=== PATIENT | female | born 1975 | race Asian ===

== ENCOUNTER 2023-06-26 06:07 | Emergency (ER) | payer OTHER ==
[2023-06-26 06:34] VITALS: BP 123/78; O2SAT 100
--- NOTE | 2023-06-26 07:47 | ED Physician Documentation ---
PD HPI URI - Stated complaint Stated Complaint: FEVER/THROAT EAR PX - Chief complaint Chief Complaint: Fever - History obtained from History obtained from: Patient - History of Present Illness Timing - onset: How many days ago (several) Timing duration: Days (several) Timing details: Gradual onset, Still present Associated symptoms: Chills, Ear pain (left ear since yesterday.), Sore throat, Swollen nodes Contributing factors: Sick contact (kids have been sick.). No: Immunocompromised Similar symptoms before: Has not had sx before Review of Systems Constitutional: reports: Fever, Chills, Myalgias, Fatigue Ears: reports: Ear pain (left) Throat: reports: Sore throat GI: denies: Vomiting, Diarrhea Skin: denies: Rash Neurologic: denies: Altered mental status, Headache PD PAST MEDICAL HISTORY - Past Medical History Past Medical History: No - Present Medications Home Medications: Ambulatory Orders Medication Instructions Recorded Confirmed Amoxicillin 500 mg PO TID #18 cap 06/26/23 Cetirizine [ZyrTEC] 10 mg PO BID #20 tablet 06/26/23 - Allergies Allergies/Adverse Reactions: Allergies Allergy/AdvReac Type Severity Reaction Status Date / Time ibuprofen Allergy Unknown Verified 06/26/23 06:30 - Social History Does the pt smoke?: No Smoking Status: Never smoker Does the pt have substance abuse?: No PD ED PE NORMAL - Vitals Vital signs reviewed: Yes - General General: Alert and oriented X 3, No acute distress, Well developed/nourished - HEENT HEENT: Pharynx benign. No: Ears normal (right is okya. left with redness and distorted landmarks of the TM. Canal is okay. ) - Neck Neck: Supple, no meningeal sign, No adenopathy - Cardiac Cardiac: RRR, No murmur - Respiratory Respiratory: Clear bilaterally - Abdomen Abdomen: Soft, Non tender Results - Vitals Vitals: Oxygen O2 Source Room air - Labs Labs: Laboratory Tests 06/26/23 06:45 Nasal Adenovirus (PCR) NOT DETECTED Nasal B. parapertussis DNA (PCR) NOT DETECTED Nasal Coronavir 229E PCR NOT DETECTED Nasal Coronavir HKU1 PCR NOT DETECTED Nasal Coronavir NL63 PCR NOT DETECTED Nasal Coronavir OC43 PCR DETECTED A Nasal Enterovir/Rhinovir PCR NOT DETECTED Nasal Influenza B PCR NOT DETECTED Nasal Influenza A PCR NOT DETECTED Nasal Parainfluen 1 PCR NOT DETECTED Nasal Parainfluen 2 PCR NOT DETECTED Nasal Parainfluen 3 PCR NOT DETECTED Nasal Parainfluen 4 PCR NOT DETECTED Nasal RSV (PCR) NOT DETECTED Nasal B.pertussis DNA PCR NOT DETECTED Nasal C.pneumoniae (PCR) NOT DETECTED Jared Human Metapneumo PCR NOT DETECTED Nasal M.pneumoniae (PCR) NOT DETECTED Nasal SARS-CoV-2 (PCR) NOT DETECTED PD Medical Decision Making - ED course Complexity details: considered differential (URI symptoms with positive viral PCRbut has clinical findings and symptoms for left otitis media as well. ), d/w patient Departure - Departure Disposition: 01 Home, Self Care Clinical Impression: Viral illness Otitis media Qualifiers: Otitis media type: suppurative Chronicity: acute Laterality: left Recurrence: non-recurrent Spontaneous tympanic membrane rupture: without spontaneous rupture Qualified Code(s): H66.002 - Acute suppurative otitis media without spontaneous rupture of ear drum, left ear Condition: Stable Record reviewed to determine appropriate education?: Yes Instructions: ED Otitis Media Acute Adult, ED Viral Syndrome Prescriptions: Amoxicillin 500 mg PO TID #18 cap Cetirizine [ZyrTEC] 10 mg PO BID #20 tablet Comments: Your viral panel test is positive for the viral upper respiratory infection germ coronavirus. This is a non-COVID type coronavirus and typically acts more like a head cold/flu for several days to week. You do have significant redness in the left eardrum appearing a separate ear infection along with that. Stay well-hydrated. Continue with Tylenol reported 6 hours if needed. You could add an ibuprofen or naproxen. The ear infection developed because of trapped fluid and germs through the middle ear. I would add cetirizine antihistamine twice daily for the next week and amoxicillin 3 times daily for a week. We did send home a days worth of antibiotic and also some pain medicine to take for extra pain. I sent the other prescriptions to the [facility] pharmacy for tomorrow. Forms: PCP List, Activity restrictions Discharge Date/Time: 06/26/23 08:43
[2023-06-26 07:59] LABS: B. PARAPERTUSSIS- RESP PCR PAN NOT DETECTED; B. PERTUSSIS- RESP PCR PANEL NOT DETECTED; C. PNEUMONIAE- RESP PCR PANEL NOT DETECTED; CORONAVIRUS 229E-RESP PCR NOT DETECTED; CORONAVIRUS HKU1-RESP PCR NOT DETECTED; CORONAVIRUS NL63-RESP PCR NOT DETECTED; CORONAVIRUS OC43-RESP PCR DETECTED; HUMAN METAPNEUMOVIRUS NOT DETECTED; INFLUENZA A- RESP PCR PANEL NOT DETECTED; INFLUENZA B - RESP PCR PANEL NOT DETECTED; M. PNEUMONIAE- RESP PCR PANEL NOT DETECTED; PARAINFLUENZA VIRUS 1 NOT DETECTED; PARAINFLUENZA VIRUS 2 NOT DETECTED; PARAINFLUENZA VIRUS 3 NOT DETECTED; PARAINFLUENZA VIRUS 4 NOT DETECTED; RHINOVIRUS/ENTEROVIRUS NOT DETECTED; RSV- RESP PCR PANEL NOT DETECTED; SARS-CoV-2 -RESP PCR PANEL NOT DETECTED
[2023-06-26] MEDS ORDERED: dexAMETHasone 4 MG TABLET PO STA (08:10)
[2023-06-26] MEDS ORDERED: AMOXICILLIN 250 MG CAPSULE PO STA (08:10)
[2023-06-26] MEDS ORDERED: CETIRIZINE 10 MG TABLET PO STA (08:10)
[2023-06-26] MEDS ORDERED: HYDROcod/ACET 5/325 Prepack 4 PO STA (08:14)
[2023-06-26] MEDS ORDERED: AMOXICILLIN 250 MG Prepack 6 PO ONE (08:27)
[2023-06-26] MEDS ORDERED: AMOXICILLIN 250 MG Prepack 6 PO SCH (14:00)
== END 2023-06-26 08:43 | disposition home or self-care (01) ==
LOC: ED 06:07
DX: B34.9 Viral infection, unspecified (principal); H66.002 Acute suppurative otitis media without spontaneous rupture of ear drum, left ear
CPT/HCPCS: 87633; 99283; A9270; J8540